=== PATIENT | male | born 1940 | race Caucasian/White ===

== ENCOUNTER → 2016-09-26 | Outpatient (CLI) | payer MEDICARE, OTHER ==
[~2016-09-26] MED LIST: ALLO300T2 PO; ATENOLOL/HCTZ PO; GEMF600T PO; LEVO500T PO; PERCOCET PO; SENN8.6T7 PO
== END ==
LOC: M SMT 07:50
PROVIDERS: ATTEND Urology
DX: Z85.46 Personal history of malignant neoplasm of prostate (principal)

== ENCOUNTER → 2017-07-05 | Outpatient (REF) | payer MEDICARE, OTHER | LOC: M LAB REF 11:24 | DX: A09 Infectious gastroenteritis and colitis, unspecified (principal) | CPT/HCPCS: 87507 ==

== ENCOUNTER → 2017-08-13 | Outpatient (REF) | payer MEDICARE, OTHER ==
[2017-08-13 14:21] LABS: FERRITIN 146 NG/ML (26-388); IRON (FE) 127 UG/DL (65-175); PERCENT SATURATION 42.9 % (19.7-50.0); TOTAL IRON BINDING CAPACITY 296 UG/DL (250-450)
[2017-08-13 14:38] LABS: FOLATE 13.2 NG/ML; VITAMIN B12 LEVEL 178 PG/ML
== END ==
LOC: M LAB REF 13:54
DX: D64.9 Anemia, unspecified (principal)
CPT/HCPCS: 82746

== ENCOUNTER 2017-08-19 12:52 | Day surgery (SDC) | payer MEDICARE, OTHER ==
[2017-08-19] MEDS: NS 1,000 ML IV (13:29)
[2017-08-19] MEDS ORDERED: LIDOCAINE 2% INJ 100 MG/5 ML SDV (FOR ANES.) As Ordered (15:19)
[2017-08-19] MEDS ORDERED: PROPOFOL 200 MG/20 ML VIAL As Ordered ×2 (15:19→15:31)
== END 2017-08-19 16:35 | disposition home or self-care (01) ==
LOC: M OPP 12:52
DX: K62.5 Hemorrhage of anus and rectum (principal); R19.7 Diarrhea, unspecified; D12.2 Benign neoplasm of ascending colon; K57.30 Diverticulosis of large intestine without perforation or abscess without bleeding; K64.8 Other hemorrhoids; K63.89 Other specified diseases of intestine; I10 Essential (primary) hypertension; E78.5 Hyperlipidemia, unspecified; M10.9 Gout, unspecified; M19.90 Unspecified osteoarthritis, unspecified site; Z85.46 Personal history of malignant neoplasm of prostate; N40.1 Benign prostatic hyperplasia with lower urinary tract symptoms; Z87.828 Personal history of other (healed) physical injury and trauma; Z87.891 Personal history of nicotine dependence; Z79.899 Other long term (current) drug therapy
CPT/HCPCS: 45380

== ENCOUNTER → 2017-10-29 | Outpatient (CLI) | payer MEDICARE, OTHER ==
[2017-10-29 18:39] LABS: PROSTATIC SPECIFIC AG MONITOR < 0.01 NG/ML (< 4.0)
== END ==
LOC: M SMT 11:50
DX: Z85.46 Personal history of malignant neoplasm of prostate (principal)
CPT/HCPCS: 84153

== ENCOUNTER → 2018-04-07 | Outpatient (CLI) | payer MEDICARE, OTHER ==
[2018-04-07 14:51] LABS: PROSTATIC SPECIFIC AG MONITOR < 0.01 NG/ML (< 4.0)
== END ==
LOC: M SMT 08:37
DX: Z85.46 Personal history of malignant neoplasm of prostate (principal)
CPT/HCPCS: 84153

== ENCOUNTER 2018-05-22 07:58 | Day surgery (SDC) | payer MEDICARE, OTHER ==
[~2018-05-22 07:58] MED LIST changes: -ALLO300T2 PO; -ATENOLOL/HCTZ PO; -GEMF600T PO; -LEVO500T PO; +MIDAZOLAM INJ 2 MG/2 ML VIAL (J2250) As Ordered; +OFLOXACIN 0.3 % (OCUFLOX) OPTH SOL 5ML OS; -PERCOCET PO; +PHENYLEPHRINE 2.5% OPHTH SOL 2ML OS; +PROPARACAINE 0.5% OPHTH SOL 15ML OS; -SENN8.6T7 PO; +TROPICAMIDE 1% OPHTH SOLN 2ML OS; +fentaNYL 100 MCG/2 ML INJECTION (J3010) As Ordered
[2018-05-22] MEDS: POVIDONE-IODINE 5% OPHTH PREP SOL 30ML As Ordered (09:25)
[2018-05-22] MEDS: LIDOCAINE 0.75%/EPINEPHRINE 0.025% IN BSS 1ML SYR INTRACAMERAL (OR ONLY) As Ordered (09:28)
[2018-05-22] MEDS: BALANCED SALT IRRIGATION SOLUTION 500ML BAG (FOR OR EYE MACHINE) As Ordered (09:30)
[2018-05-22] MEDS: DUOVISC (0.50ML VISCOAT/0.55ML PROVISC) OPHTH KIT As Ordered (09:37)
[2018-05-22] MEDS: CEFUROXIME 1MG/0.1ML INTRACAMERAL INJ As Ordered (09:40)
== END 2018-05-22 10:29 | disposition home or self-care (01) ==
LOC: M SDC 07:58
DX: H25.12 Age-related nuclear cataract, left eye (principal); I10 Essential (primary) hypertension; E78.5 Hyperlipidemia, unspecified; M10.9 Gout, unspecified; K57.30 Diverticulosis of large intestine without perforation or abscess without bleeding; R06.02 Shortness of breath; M12.9 Arthropathy, unspecified; I69.998 Other sequelae following unspecified cerebrovascular disease; N40.0 Benign prostatic hyperplasia without lower urinary tract symptoms; C61 Malignant neoplasm of prostate; T88.59XD Other complications of anesthesia, subsequent encounter; Z79.899 Other long term (current) drug therapy; Z79.82 Long term (current) use of aspirin
CPT/HCPCS: 66984

== ENCOUNTER 2018-05-29 07:18 | Day surgery (SDC) | payer MEDICARE, OTHER ==
[2018-05-29] MEDS: PROPARACAINE 0.5% OPHTH SOL 15ML OD (07:00)
[2018-05-29] MEDS: TROPICAMIDE 1% OPHTH SOLN 2ML OD (07:00)
[2018-05-29] MEDS: OFLOXACIN 0.3 % (OCUFLOX) OPTH SOL 5ML OD (07:00)
[2018-05-29] MEDS: PHENYLEPHRINE 2.5% OPHTH SOL 2ML OD (07:00)
[2018-05-29] MEDS ORDERED: MIDAZOLAM INJ 2 MG/2 ML VIAL (J2250) As Ordered (08:19)
[2018-05-29] MEDS ORDERED: fentaNYL 100 MCG/2 ML INJECTION (J3010) As Ordered (08:19)
[2018-05-29] MEDS: POVIDONE-IODINE 5% OPHTH PREP SOL 30ML As Ordered (08:45)
[2018-05-29] MEDS: LIDOCAINE 0.75%/EPINEPHRINE 0.025% IN BSS 1ML SYR INTRACAMERAL (OR ONLY) As Ordered (08:48)
[2018-05-29] MEDS: BALANCED SALT IRRIGATION SOLUTION 500ML BAG (FOR OR EYE MACHINE) As Ordered (08:49)
[2018-05-29] MEDS: CEFUROXIME 1MG/0.1ML INTRACAMERAL INJ As Ordered (08:53)
[2018-05-29] MEDS: DUOVISC (0.50ML VISCOAT/0.55ML PROVISC) OPHTH KIT As Ordered (08:53)
== END 2018-05-29 09:45 | disposition home or self-care (01) ==
LOC: M SDC 07:18
DX: H25.11 Age-related nuclear cataract, right eye (principal); I10 Essential (primary) hypertension; M10.9 Gout, unspecified; E78.5 Hyperlipidemia, unspecified; Z86.73 Personal history of transient ischemic attack (TIA), and cerebral infarction without residual deficits; Z79.899 Other long term (current) drug therapy; Z85.46 Personal history of malignant neoplasm of prostate; Z79.82 Long term (current) use of aspirin
CPT/HCPCS: 66984

== ENCOUNTER → 2020-09-27 | Outpatient (CLI) | payer MEDICARE, OTHER ==
[~2020-09-27] MED LIST changes: +ALLO300T2 PO; +AMLO1TAB24 PO; +AMLO1TAB25 PO; +ASPI-527 PO; +ATEN100T PO; +ATENOLOL/HCTZ PO; +ATOR1TAB21 PO; +CALCTAB68 PO; +COQ-100C2 PO; +GEMF600T PO; +LABE20TAB PO; +LEVO500T PO; +LOSA100T50 PO; +MELA1TAB15 PO; -MIDAZOLAM INJ 2 MG/2 ML VIAL (J2250) As Ordered; +MULT1TAB10 PO; -OFLOXACIN 0.3 % (OCUFLOX) OPTH SOL 5ML OS; +OXYC1TAB23 PO; -PHENYLEPHRINE 2.5% OPHTH SOL 2ML OS; -PROPARACAINE 0.5% OPHTH SOL 15ML OS; +SENN8.6T7 PO; -TROPICAMIDE 1% OPHTH SOLN 2ML OS; +ZYLO300T6 PO; -fentaNYL 100 MCG/2 ML INJECTION (J3010) As Ordered
--- NOTE | 2020-09-27 14:27 | REP ---
INDICATION: PAIN IN JOINT. COMPARISON: None. TECHNIQUE: Four views FINDINGS: There is asymmetric intra digital joint space narrowing involving DIP joints 2 through 4. Prominent marginal osteophytosis is also seen involving those affected DIP joints. Asymmetric joint space narrowing is also seen involving all metacarpophalangeal joints with mild marginal osteophytosis. There is no evidence of periarticular osteopenia and there are no leila marginal erosions. There is no acute fracture, dislocation, or subluxation. The DIP joints of digits 2 and 4 are chronically mildly laterally subluxed. Chronic changes are also seen involving the wrist. IMPRESSION: Chronic degenerative changes as described above. <Electronically signed by Julio Rodrigues > 09/27/20 9209
== END ==
LOC: M WUC 13:52
PROVIDERS: ATTEND Internal Medicine
DX: M25.541 Pain in joints of right hand (principal); M19.041 Primary osteoarthritis, right hand; M19.031 Primary osteoarthritis, right wrist

== ENCOUNTER → 2021-08-01 | Outpatient (CLI) | payer MEDICARE, OTHER ==
[~2021-08-01] MED LIST changes: +LOSA100T45 PO; -LOSA100T50 PO
[2021-08-01 14:12] LABS: BLOOD UREA NITROGEN 18 MG/DL (7-18); CREATININE FOR GFR 0.88 MG/DL (0.70-1.30); GLOMERULAR FILTRATION RATE > 60.0 (>35); IRON (FE) 57 UG/DL (65-175); PERCENT SATURATION 29.2 % (19.7-50.0); TOTAL IRON BINDING CAPACITY 195 UG/DL (250-450)
[2021-08-01 14:20] LABS: VITAMIN B12 LEVEL 432 PG/ML
[2021-08-01 14:21] LABS: FOLATE > 24.0 NG/ML
== END ==
LOC: M LAB 13:12
PROVIDERS: ATTEND Internal Medicine Gastroenterology
DX: R19.7 Diarrhea, unspecified (principal); R63.4 Abnormal weight loss

== ENCOUNTER → 2021-08-02 | Outpatient (REF) | payer MEDICARE, OTHER | LOC: M LAB REF 08-01 10:21 | PROVIDERS: ATTEND Internal Medicine Gastroenterology | DX: R19.7 Diarrhea, unspecified (principal); R63.4 Abnormal weight loss ==

== ENCOUNTER → 2021-08-16 | Outpatient (CLI) | payer MEDICARE, OTHER ==
[~2021-08-16] MED LIST changes: +GLUCAGON INJ 1MG VIAL As Ordered ONE; +ISOVUE-370 76% 100ML VIAL As Ordered ONE; +NEULUMEX 0.1% SUSPENSION 450ML BOTTLE (FORMERLY VOLUMEN) As Ordered ONE
== END ==
LOC: M RAD 14:15
PROVIDERS: ATTEND Internal Medicine Gastroenterology
DX: K57.30 Diverticulosis of large intestine without perforation or abscess without bleeding (principal); K80.20 Calculus of gallbladder without cholecystitis without obstruction; K40.90 Unilateral inguinal hernia, without obstruction or gangrene, not specified as recurrent; R19.7 Diarrhea, unspecified; R63.4 Abnormal weight loss
CPT/HCPCS: 74177; J1610; Q9967

== ENCOUNTER → 2022-08-08 | Outpatient (REF) | payer MEDICARE, OTHER ==
[~2022-08-08] MED LIST changes: -GLUCAGON INJ 1MG VIAL As Ordered ONE; -ISOVUE-370 76% 100ML VIAL As Ordered ONE; -NEULUMEX 0.1% SUSPENSION 450ML BOTTLE (FORMERLY VOLUMEN) As Ordered ONE
== END ==
LOC: M LAB REF 15:11
PROVIDERS: ATTEND Internal Medicine Gastroenterology
DX: R19.7 Diarrhea, unspecified (principal); K86.81 Exocrine pancreatic insufficiency; R63.4 Abnormal weight loss

== ENCOUNTER → 2022-08-15 | Outpatient (CLI) | payer MEDICARE, OTHER ==
[2022-08-15 14:24] LABS: BASO # 0.1 10^3/uL (0.0-0.2); BASO % 0.5 % (0.0-1.0); EOS # 0.1 10^3/uL (0.0-0.5); EOS % 0.8 % (0.0-3.0); HEMATOCRIT 38.3 % (42.0-52.0); HEMOGLOBIN 12.5 g/dl (13.5-17.5); LYMPH # 1.1 10^3/uL (1.5-5.0); LYMPH % 12.1 % (24.0-44.0); MEAN CORPUSCULAR HEMOGLOBIN 29.6 pg (27.0-33.0); MEAN CORPUSCULAR HGB CONC 32.6 g/dl (32.0-36.5); MEAN CORPUSCULAR VOLUME 90.5 fl (80.0-96.0); MONO % 10.3 % (2.0-8.0); NEUTROPHILS % 75.9 % (36.0-66.0); PLATELET COUNT, AUTOMATED 327 10^3/uL (150-450); RED BLOOD COUNT 4.23 10^6/uL (4.30-6.10); WHITE BLOOD COUNT 9.3 10^3/uL (4.0-10.0)
[2022-08-15 14:49] LABS: ALBUMIN 3.1 G/DL (3.2-5.2); BILIRUBIN,TOTAL 0.9 MG/DL (0.3-1.2); CALCIUM LEVEL 9.4 MG/DL (8.3-10.6); CREATININE FOR GFR 1.46 MG/DL (0.70-1.30); GLOMERULAR FILTRATION RATE 49.2 (>35); POTASSIUM SERUM 4.6 MMOL/L (3.5-5.1); TOTAL PROTEIN 6.2 G/DL (5.7-8.2)
== END ==
LOC: M LAB 12:06
PROVIDERS: ATTEND Internal Medicine Gastroenterology
DX: K86.81 Exocrine pancreatic insufficiency (principal)

== ENCOUNTER → 2022-08-31 | Outpatient (CLI) | payer MEDICARE, OTHER ==
[~2022-08-31] MED LIST changes: +CALC-356 PO; +CART180C3 PO; +CREO6000 PO; +D-50CAP PO; +ELIQ2.5T PO; +ENOX80IN3 SQ; +MELA10CA2 PO; +METR-265 PO; +MULTTAB86 PO; +TORS20TA2 PO; +TRAZ-252 PO
== END ==
LOC: M LABSMTC 11:17
PROVIDERS: ATTEND Anesthesiology
DX: Z01.812 Encounter for preprocedural laboratory examination (principal)

== ENCOUNTER 2022-09-05 09:44 | Day surgery (SDC) | payer MEDICARE, OTHER ==
[~2022-09-05] VITALS: Ht 175.3 cm; Wt 83.5 kg
[~2022-09-05 09:44] MED LIST changes: +NS 1,000 ML IV ONE
[2022-09-05] MEDS ORDERED: propofoL 200 MG/20 ML VIAL As Ordered ONE (10:57)
[2022-09-05] MEDS ORDERED: LIDOCAINE 2% 100MG/5ML SDV (FOR ANES.) As Ordered ONE (10:57)
[2022-09-05] MEDS ORDERED: PHENYLephrine 500MCG 5ML (100MCG/ML) SYRINGE As Ordered ONE (11:37)
[2022-09-05 12:28] VITALS: BP 137/76
== END 2022-09-05 13:10 | disposition home or self-care (01) ==
LOC: M OPP 09:44
PROVIDERS: ATTEND Internal Medicine Gastroenterology
DX: K52.9 Noninfective gastroenteritis and colitis, unspecified (principal); K64.8 Other hemorrhoids; K57.30 Diverticulosis of large intestine without perforation or abscess without bleeding; I10 Essential (primary) hypertension; J44.9 Chronic obstructive pulmonary disease, unspecified; I62.9 Nontraumatic intracranial hemorrhage, unspecified; Z79.01 Long term (current) use of anticoagulants; Z79.2 Long term (current) use of antibiotics; Z79.899 Other long term (current) drug therapy; Z85.46 Personal history of malignant neoplasm of prostate; Z86.73 Personal history of transient ischemic attack (TIA), and cerebral infarction without residual deficits; Z87.891 Personal history of nicotine dependence
CPT/HCPCS: 45380; 88305; J2370